=== PATIENT | female | born 1960 | race Caucasian/White ===

== ENCOUNTER 2019-10-07 06:10 | Day surgery (SDC) | payer OTHER ==
[2019-10-07] MEDS ORDERED: Sodium Chloride 0.9% 1,000 ML IV SCH (07:00)
[2019-10-07] MEDS ORDERED: Midazolam 1 MG/ML 2 ML SDV ONE (07:51)
[2019-10-07] MEDS ORDERED: fentaNYL 100 MCG/2 ML SDV ONE (07:51)
[2019-10-07] MEDS ORDERED: Propofol 200 MG/20 ML SDV ONE (07:51)
--- NOTE | 2019-10-07 12:34 | OR ---
DATE OF PROCEDURE: 10/07/2019 SURGEON: Kyle Skaggs MD PROCEDURE: Colonoscopy. FINDINGS: 1. Diverticulosis, very mild and early, limited to sigmoid colon. 2. Sigmoid colon polyp, approximately 5 mm, completely removed using cold biopsy forceps. 3. Rectal polyp, approximately 5 mm, completely removed using cold biopsy forceps. COMPLICATIONS: None. WATER SANDER: None. ANESTHESIA: MAC. PREOPERATIVE DIAGNOSIS: Screening colonoscopy. POSTOPERATIVE DIAGNOSIS: Screening colonoscopy. RISKS: Risks, benefits, alternatives, and limitations including, but not limited to infection, bleeding, and perforation were explained to the patient, who wished to proceed. PROCEDURE IN DETAIL: The patient was placed in left lateral decubitus position. Digital rectal exam was performed without abnormality. Scope was introduced and advanced atraumatically to the ileocecal valve. A photo was taken. The scope was brought back through the ascending, transverse, descending colon, and retroflexed. The aforementioned polyps were identified and completely removed. Diverticulosis was described as very mild, very early, with only a few noted, limited to sigmoid colon, without evidence of diverticulitis or diverticulosis. On retroflexion, no abnormalities. The patient tolerated the procedure well. Kyle Skaggs MD /[id number]
== END 2019-10-07 09:35 | disposition home or self-care (01) ==
LOC: JP.SDS 06:10
PROVIDERS: ATTEND Surgery
DX: Z12.11 Encounter for screening for malignant neoplasm of colon (principal); K63.5 Polyp of colon; K62.1 Rectal polyp; K57.30 Diverticulosis of large intestine without perforation or abscess without bleeding
CPT/HCPCS: 88305; J2250; J2704; J3010; J7030